=== PATIENT | male | born 1970 | race African-American/Black ===

== ENCOUNTER 2016-07-06 02:15 | Emergency (ER) | payer MEDICAID ==
[~2016-07-06] VITALS: Ht 172.7 cm; Wt 78.5 kg
[2016-07-06] MEDS ORDERED: NKM (02:23)
[2016-07-06] MEDS ORDERED: LORazepam Inj 2mg/ml 1ml ONE (02:35)
--- NOTE | 2016-07-06 02:40 | Emergency Room Report ---
History of Present Illness General Chief Complaint: Pain Source: Patient Present Illness HPI Is a 46-year-old male with no significant past medical history. He presents with neck spasm the left side. He woke up with this. He had some is symptom in the past. He took some tramadol and Flexeril without any relief. Denies taking any other medication. Denies any trauma. No fever or chills. No nausea no vomiting. Pain is severe 10 out of 10. Worse when he comes in waves. Denies any other complaint. Allergies: Coded Allergies: No Known Allergies (Unverified , 03/28/16) Patient History Past Medical History: see triage record, old chart reviewed Past Surgical History: other Pertinent Family History: none Social History: Denies: drug use Immunizations: other Reviewed Nursing Documentation: PMH: Agreed, PSxH: Agreed Nursing Documentation-PMH Past Medical History: No Stated History Review of Systems Eye: Denies: blurred vision, eye pain ENT: Denies: ear pain, nose congestion, throat swelling Respiratory: Denies: cough, shortness of breath Cardiovascular: Denies: chest pain, palpitations Gastrointestinal: Denies: abdominal pain, diarrhea, nausea, vomiting Musculoskeletal: Denies: back pain, joint pain Skin: Denies: rash Neurological: Denies: headache, numbness Endocrine: Denies: increased thirst, increased urine Hematologic/Lymphatic: Denies: easy bruising All Other Systems: negative except mentioned in HPI Physical Exam Vital Signs Date Time Temp Pulse Resp B/P Pulse Ox O2 Delivery O2 Flow Rate FiO2 07/06/16 02:19 97.9 67 18 129/65 100 Room Air vitals normal Sp02 EP Interpretation: reviewed, normal General Appearance: well appearing, alert, mild distress - From pain Head: normocephalic, atraumatic Eyes: bilateral eye EOMI, bilateral eye PERRL ENT: hearing grossly normal, normal pharynx Neck: no meningismus, other - Spasm to the left lateral neck. Respiratory: chest non-tender, lungs clear, normal breath sounds Cardiovascular #1: regular rate, rhythm, no murmur Gastrointestinal: normal bowel sounds, non tender, no mass, no organomegaly, no bruit, non-distended Musculoskeletal: back normal, gait/station normal, normal range of motion Psychiatric: mood/affect normal Skin: warm/dry Medical Decision Making Diagnostic Impression: Primary Impression: Torticollis, acute ER Course Patient present with torticollis left-sided neck. There is no trauma. No evidence of meningitis, fracture dislocation. We'll discharge home. He is better now after Ativan and Toradol Last Vital Signs Date Time Temp Pulse Resp B/P Pulse Ox O2 Delivery O2 Flow Rate FiO2 07/06/16 02:19 97.9 67 18 129/65 100 Room Air Status: improved Disposition: HOME, SELF-CARE Condition: Stable Scripts Diazepam* (VALIUM*) 10 Mg Tablet 10 MG ORAL TID Y for spasm, #15 TAB 0 Refills Prov: JUDY KIM M.D. 07/06/16 Additional Instructions: Followup with your Dr. 2 to 3 days. Return if symptom worsen. JUDY KIM M.D. Jul 06, 2016 02:40
[2016-07-06] MEDS ORDERED: LORazepam Inj 2mg/ml 1ml IM ONE ×2 (02:45)
[2016-07-06] MEDS ORDERED: Ketorolac 60mg Inj ONE (03:15)
[2016-07-06 03:21] VITALS: BP 128/60
[2016-07-06] MEDS ORDERED: Ketorolac 60mg Inj IM ONE (03:30)
[2016-07-06] MEDS ORDERED: LORazepam Inj 2mg/ml 1ml IV ONE (03:45)
[2016-07-06] MEDS ORDERED: VALIUM10 MG ORAL (04:29)
[2016-07-06 06:00] VITALS: BP 117/63
[2016-07-06 06:23] VITALS: BP 117/63
== END 2016-07-06 06:23 | disposition home or self-care (01) ==
LOC: EMR 02:45
DX: M43.6 Torticollis (principal)
CPT/HCPCS: 96372; 96374